=== PATIENT | female | born 1990 | race Caucasian/White ===

== ENCOUNTER 2021-07-22 10:58 | Emergency (ER) | payer BC ==
[~2021-07-22] VITALS: Ht 167.6 cm; Wt 72.6 kg
--- NOTE | 2021-07-22 11:00 | NUR ---
BIBS C/O ANXIETY AFTER DOG'S PASSING LAST NIGHT AND IS REQUESTING ANXIETY MEDICATION. PT VITALS ARE ELEVATED, MD AWARE. BREATHING IS EVEN AND UNLABORED.
--- NOTE | 2021-07-22 11:41 | NUR ---
IV ESTABLISH R AC #[id number]
[2021-07-22] MEDS ORDERED: LORAZEPAM INJ 2 MG/ML VIAL IV ONE (12:00)
[2021-07-22] MEDS ORDERED: IV NS 0.9% 1,000 ML IV ONE (12:00)
[2021-07-22] MEDS ORDERED: ONDANSETRON HCL/PF 4 MG/2 ML VIAL IV ONE (12:00)
[2021-07-22] MEDS ORDERED: ONDANSETRON HCL/PF 4 MG/2 ML VIAL ONE (12:06)
[2021-07-22] MEDS ORDERED: LORAZEPAM INJ 2 MG/ML VIAL ONE (12:07)
--- NOTE | 2021-07-22 13:25 | NUR ---
IV removed. Catheter intact and site benign. Pressure and 4x4 applied to site. No bleeding noted.Patient discharged to home in stable condition. Written and verbal after care instructions given. Patient verbalizes understanding of instruction.
[2021-07-22 13:27] VITALS: BP 151/81
== END 2021-07-22 13:28 | disposition home or self-care (01) ==
LOC: ER 11:00
DX: F41.9 Anxiety disorder, unspecified (principal); F43.20 Adjustment disorder, unspecified; Z88.2 Allergy status to sulfonamides
CPT/HCPCS: 96361; 96374; 96375; 99284; J2060; J2405; J7030